=== PATIENT | female | born 1980 | race African-American/Black ===

== ENCOUNTER 2019-05-17 10:23 | Emergency (ER) | payer BC ==
--- NOTE | 2019-05-17 11:07 | RAD REPORT ---
EXAM DESCRIPTION: RAD - Chest Single View - 05/17/2019 10:59 am CLINICAL HISTORY: Palpitations, right-sided chest pain COMPARISON: None. TECHNIQUE: AP portable chest image was obtained . FINDINGS: Lungs are clear. Heart and vasculature are normal. No measurable pleural effusion and no p neumothorax. No acute bony abnormality seen. No acute aortic finding. Granulomatous hilar calcificati ons are present. IMPRESSION: No acute cardiopulmonary process.
[2019-05-17 11:12] LABS: Basophils % 0.7 % (0-1.3); Hematocrit 39.3 % (36.0-45.0); Lymphocytes % 27.7 % (15.3-44.8); MPV 9.1 fL (7.6-11.3)
[2019-05-17 11:27] LABS: Protime INR 1.05
[2019-05-17 11:29] LABS: ALT/SGPT 18 U/L (12-78); AST/SGOT 16 U/L (15-37); Albumin 3.9 g/dL (3.4-5.0); Alkaline Phosphatase 72 U/L (45-117); BUN Blood Urea Nitrogen 9 mg/dL (7-18); Bicarbonate 29 mmol/L (21-32); Bilirubin Direct 0.1 mg/dL (0-0.2); Bilirubin Total 0.4 mg/dL (0.2-1.0); Glucose Level 209 mg/dL (74-106); Lipase 33 U/L (73-393); Magnesium 1.9 mg/dL (1.8-2.4); NT PRO-BNP 9 pg/mL (<125); Potassium 3.9 mmol/L (3.5-5.1); Sodium Level 139 mmol/L (136-145); Troponin (Emerg Dept Use Only) < 0.02 ng/mL (0.0-0.045)
[2019-05-17 11:32] LABS: Urine Blood 2+ (NEG); Urine Glucose NEGATIVE (NEG); Urine Protein NEGATIVE (NEG); Urine Specific Gravity 1.025 (1.005-1.030); Urine pH 5.5 (5.0-7.0)
--- NOTE | 2019-05-17 11:56 | ER ---
Nurse's Notes [facility] Name: Valorie Cisneros Age: 39 yrs Sex: Female : 1980 Arrival Date: 05/17/2019 Time: 10:27 Bed 7 Private MD: Liban Sosa V Diagnosis: Other chest pain;Type 1 diabetes mellitus;Essential (primary) hypertension Presentation: 05/17 10:35 Presenting complaint: Patient states: intermittent palpitations and R sided chest pain ss that began 1 month ago. L low back/ flank pain x 2 weeks. Transition of care: patient was not received from another setting of care. Onset of symptoms is unknown. Risk Assessment: Do you want to hurt yourself or someone else? Patient reports no desire to harm self or others. Initial Sepsis Screen: Does the patient meet any 2 criteria? No. Patient's initial sepsis screen is negative. Does the patient have a suspected source of infection? No. Patient's initial sepsis screen is negative. Care prior to arrival: None. 10:35 Method Of Arrival: Ambulatory ss 10:35 Acuity: COLEMAN 3 ss Historical: - Allergies: 10:37 No Known Allergies; ss - Home Meds: 10:37 toujeo [Active]; rosuvastatin 5 mg oral tab 1 tab once daily [Active]; Novolog Sub-Q ss [Active]; - PMHx: 10:37 Diabetes - IDDM; ss - PSHx: 10:37 ; ss - Immunization history:: Adult Immunizations up to date. - Social history:: Smoking status: Patient/guardian denies using tobacco. - Ebola Screening: : Patient denies exposure to infectious person Patient denies travel to an Ebola-affected area in the 21 days before illness onset. - Family history:: not pertinent. Screenin:38 Abuse screen: Denies threats or abuse. Denies injuries from another. Nutritional ph screening: No deficits noted. Tuberculosis screening: No symptoms or risk factors identified. Fall Risk None identified. Vital Signs: 10:37 Resp 16; Temp 97.3(TE); Weight 63.5 kg; Height 5 ft. 6 in. (167.64 cm); Pain 0/10; ss 10:38 BP 142 / 111; ph 10:39 BP 142 / 111; Pulse 92; Pulse Ox 100% on R/A; ss 12:13 BP 143 / 105; Pulse 90; Resp 12; Pulse Ox 98% ; ms 12:48 Temp 97.6; ph 10:37 Body Mass Index 22.60 (63.50 kg, 167.64 cm) ED Course: 10:27 Patient arrived in ED. am2 10:28 Liban Sosa MD is Private Physician. am2 10:29 Domingo Peck MD is Attending Physician. elliott 10:36 Triage completed. ss 10:37 Arm band placed on right wrist. ss 10:39 Patient has correct armband on for positive identification. Placed in gown. Bed in low ph position. Call light in reach. Side rails up X 1. Pulse ox on. NIBP on. rn mental health on. Door closed. Noise minimized. 10:46 Meredith Morris, RN is Primary Nurse. sv 10:52 Urine collected: clean catch specimen, clear, Amount Voided: 50mL EKG done, by ED ms staff, reviewed by Domingo Peck MD. 10:57 XRAY Chest (1 view) In Process Unspecified. EDMS 11:55 Liban Sosa MD is Referral Physician. elliott 11:55 Omer Mustafa MD is Referral Physician. elliott Administered Medications: 12:47 Drug: Norvasc 10 mg Route: PO; ph 12:47 Follow up: Response: No adverse reaction; Medication administered at discharge. ph 12:47 Drug: Aspirin 162 mg Route: PO; ph 12:48 Follow up: Response: No adverse reaction; Medication administered at discharge. ph Outcome: 11:56 Discharge ordered by . elliott 12:49 Patient left the ED. ph Signatures: Dispatcher [employer] EDMeredith Werner, Domingo Carrillo RN, MD MD cha Solis, Maria ms Smirch, Shelby, RN RN Dorothy Monk RN RN Allison Glass am2 Corrections: (The following items were deleted from the chart) 10:40 10:39 BP 142 / 11; Pulse 92bpm; Pulse Ox 100% RA; ss ss
--- NOTE | 2019-05-17 11:57 | EDPHYS ---
Physician Documentation [facility] Name: Valorie Cisneros Age: 39 yrs Sex: Female : 1980 Arrival Date: 05/17/2019 Time: 10:27 Bed 7 Private MD: Liban Sosa V ED Physician Domingo Peck HPI: 05/17 10:45 This 39 yrs old Black Female presents to ER via Ambulatory with complaints of Chest elliott Pain, Congestion, left side pain. 10:45 The patient or guardian reports chest pain that is located primarily in the anterior elliott chest wall, right. The pain does not radiate. Associated signs and symptoms: The patient has no apparent associated signs or symptoms. The chest pain is described as stabbing. Modifying factors: The symptoms are alleviated by nothing. the symptoms are aggravated by nothing. Severity of pain: At its worst the pain was mild in the emergency department the pain is unchanged. The patient has not experienced similar symptoms in the past. Historical: - Allergies: 10:37 No Known Allergies; ss - Home Meds: 10:37 toujeo [Active]; rosuvastatin 5 mg oral tab 1 tab once daily [Active]; Novolog Sub-Q ss [Active]; - PMHx: 10:37 Diabetes - IDDM; ss - PSHx: 10:37 ; ss - Immunization history:: Adult Immunizations up to date. - Social history:: Smoking status: Patient/guardian denies using tobacco. - Ebola Screening: : Patient denies exposure to infectious person Patient denies travel to an Ebola-affected area in the 21 days before illness onset. - Family history:: not pertinent. ROS: 10:45 Constitutional: Negative for fever, chills, and weight loss, Eyes: Negative for injury, elliott pain, redness, and discharge, ENT: Negative for injury, pain, and discharge, Neck: Negative for injury, pain, and swelling, Respiratory: Negative for shortness of breath, cough, wheezing, and pleuritic chest pain, Abdomen/GI: Negative for abdominal pain, nausea, vomiting, diarrhea, and constipation, Back: Negative for injury and pain, : Negative for injury, bleeding, discharge, and swelling, MS/Extremity: Negative for injury and deformity, Skin: Negative for injury, rash, and discoloration, Neuro: Negative for headache, weakness, numbness, tingling, and seizure, Psych: Negative for depression, anxiety, suicide ideation, homicidal ideation, and hallucinations, Allergy/Immunology: Negative for hives, rash, and allergies, Endocrine: Negative for neck swelling, polydipsia, polyuria, polyphagia, and marked weight changes, Hematologic/Lymphatic: Negative for swollen nodes, abnormal bleeding, and unusual bruising. 10:45 Cardiovascular: Positive for chest pain, of the anterior aspect of right upper chest and right breast. Exam: 10:45 Constitutional: This is a well developed, well nourished patient who is awake, alert, elliott and in no acute distress. Head/Face: Normocephalic, atraumatic. Eyes: Pupils equal round and reactive to light, extra-ocular motions intact. Lids and lashes normal. Conjunctiva and sclera are non-icteric and not injected. Cornea within normal limits. Periorbital areas with no swelling, redness, or edema. ENT: Nares patent. No nasal discharge, no septal abnormalities noted. Tympanic membranes are normal and external auditory canals are clear. Oropharynx with no redness, swelling, or masses, exudates, or evidence of obstruction, uvula midline. Mucous membranes moist. Neck: Trachea midline, no thyromegaly or masses palpated, and no cervical lymphadenopathy. Supple, full range of motion without nuchal rigidity, or vertebral point tenderness. No Meningismus. Chest/axilla: Normal chest wall appearance and motion. Nontender with no deformity. No lesions are appreciated. Cardiovascular: Regular rate and rhythm with a normal S1 and S2. No gallops, murmurs, or rubs. Normal PMI, no JVD. No pulse deficits. Respiratory: Lungs have equal breath sounds bilaterally, clear to auscultation and percussion. No rales, rhonchi or wheezes noted. No increased work of breathing, no retractions or nasal flaring. Abdomen/GI: Soft, non-tender, with normal bowel sounds. No distension or tympany. No guarding or rebound. No evidence of tenderness throughout. Back: No spinal tenderness. No costovertebral tenderness. Full range of motion. Skin: Warm, dry with normal turgor. Normal color with no rashes, no lesions, and no evidence of cellulitis. MS/ Extremity: Pulses equal, no cyanosis. Neurovascular intact. Full, normal range of motion. Neuro: Awake and alert, GCS 15, oriented to person, place, time, and situation. Cranial nerves II-XII grossly intact. Motor strength 5/5 in all extremities. Sensory grossly intact. Cerebellar exam normal. Normal gait. Psych: Awake, alert, with orientation to person, place and time. Behavior, mood, and affect are within normal limits. 10:48 Musculoskeletal/extremity: DVT Exam: No signs of deep vein thrombosis. no pain, no elliott swelling, no tenderness, negative Homans' sign noted on exam, no appreciated bluish discoloration, no erythema, no increased warmth. Vital Signs: 10:37 Resp 16; Temp 97.3(TE); Weight 63.5 kg; Height 5 ft. 6 in. (167.64 cm); Pain 0/10; ss 10:38 BP 142 / 111; ph 10:39 BP 142 / 111; Pulse 92; Pulse Ox 100% on R/A; ss 12:13 BP 143 / 105; Pulse 90; Resp 12; Pulse Ox 98% ; ms 12:48 Temp 97.6; ph 10:37 Body Mass Index 22.60 (63.50 kg, 167.64 cm) MDM: 10:29 Patient medically screened. [facility] 10:47 Data reviewed: vital signs, nurses notes, lab test result(s), EKG, radiologic studies, [facility] plain films. 05/17 10:44 Order name: Basic Metabolic Panel [facility] 05/17 10:44 Order name: CBC with Diff; Complete Time: 11:54 [facility] 05/17 10:44 Order name: LFT's; Complete Time: 11:54 [facility] 05/17 10:44 Order name: Magnesium; Complete Time: 11:54 [facility] 05/17 10:44 Order name: NT PRO-BNP [facility] 05/17 10:44 Order name: PT-INR; Complete Time: 11:54 [facility] 05/17 10:44 Order name: Troponin (emerg Dept Use Only); Complete Time: 11:54 [facility] 05/17 10:44 Order name: Lipase; Complete Time: 11:54 [facility] 05/17 10:44 Order name: Urine Culture [facility] 05/17 10:44 Order name: D-Dimer; Complete Time: 11:54 [facility] 05/17 10:45 Order name: Basic Metabolic Panel; Complete Time: 11:54 [facility] 05/17 10:45 Order name: NT PRO-BNP; Complete Time: 11:54 [facility] 05/17 10:48 Order name: Urine Dipstick--Ancillary (enter results); Complete Time: 11: 05/17 10:48 Order name: Urine --Ancillary (enter results); Complete Time: 11:54 05/17 10:44 Order name: XRAY Chest (1 view); Complete Time: 11:54 [facility] 05/17 10:44 Order name: EKG; Complete Time: 10:46 [facility] 05/17 10:44 Order name: Cardiac monitoring; Complete Time: 11: [facility] 05/17 10:44 Order name: EKG - Nurse/Tech; Complete Time: [facility] 05/17 10:44 Order name: IV Saline Lock; Complete Time: : [facility] 05/17 10:44 Order name: Labs collected and sent; Complete Time: : [facility] 05/17 10:44 Order name: O2 Per Protocol; Complete Time: 10:53 [facility] 05/17 10:44 Order name: O2 Sat Monitoring; Complete Time: : [facility] 05/17 10:44 Order name: Urine Dipstick-Ancillary (obtain specimen); Complete Time: : [facility] 05/17 10:44 Order name: Urine Test (obtain specimen); Complete Time: : [facility] 05/17 11:55 Order name: Vital Signs; Complete Time: 12:16 elliott Administered Medications: 12:47 Drug: Norvasc 10 mg Route: PO; ph 12:47 Follow up: Response: No adverse reaction; Medication administered at discharge. ph 12:47 Drug: Aspirin 162 mg Route: PO; ph 12:48 Follow up: Response: No adverse reaction; Medication administered at discharge. ph Disposition: 05/17/19 11:56 Discharged to Home. Impression: Other chest pain, Type 1 diabetes mellitus, Essential (primary) hypertension. - Condition is Stable. - Discharge Instructions: Nonspecific Chest Pain, Hypertension, Nonspecific Chest Pain, [id number], Hypertension, [id number], Aspirin and Your Heart. - Prescriptions for Norvasc 5 mg Oral Tablet - take 1 tablet by ORAL route once daily; 20 tablet. - Medication Reconciliation Form, Thank You Letter, Antibiotic Education, Prescription Opioid Use, Work release form form. - Follow up: Liban Sosa; When: 2 - 3 days; Reason: Recheck today's complaints, Continuance of care, Re-evaluation by your physician. Follow up: Omer Mustafa; When: 2 - 3 days; Reason: Recheck today's complaints, Continuance of care, Re-evaluation by your physician. - Problem is new. - Symptoms have improved. Signatures: Dispatcher [employer] EDMS Domingo Peck MD MD cha Smirch, Shelby, RN RN Dorothy Monk RN RN ph Corrections: (The following items were deleted from the chart) 12:49 11:56 05/17/2019 11:56 Discharged to Home. Impression: Other chest pain; Type 1 ph diabetes mellitus; Essential (primary) hypertension. Condition is Stable. Discharge Instructions: Nonspecific Chest Pain, Hypertension, Nonspecific Chest Pain, [id number], Hypertension, [id number], Aspirin and Your Heart. Prescriptions for Norvasc 5 mg Oral Tablet - take 1 tablet by ORAL route once daily; 20 tablet. and Forms are Medication Reconciliation Form, Thank You Letter, Antibiotic Education, Prescription Opioid Use. Follow up: Liban Sosa; When: 2 - 3 days; Reason: Recheck today's complaints, Continuance of care, Re-evaluation by your physician. Follow up: Omer Mustafa; When: 2 - 3 days; Reason: Recheck today's complaints, Continuance of care, Re-evaluation by your physician. Problem is new. Symptoms have improved. elliott
[2019-05-17] MEDS ORDERED: ASPIRIN 81 MG CHEWABLE TABLET ONE (12:26)
[2019-05-17] MEDS ORDERED: AMLODIPINE 5 MG TAB ONE (12:26)
[2019-05-17 13:03] VITALS: BP 143/105; O2SAT 98
[2019-05-17 13:04] VITALS: TEMP 97.6
--- NOTE | 2019-05-18 06:14 | EKG ---
Test Date: 2019-05-17 Test Time: 10:34:34 Short Story Writer: MEASUREMENT RESULTS: Intervals: Rate: 92 W[place]: 166 QRSD: 80 QT: 360 QTc: 445 [place]: P: 51 W[place]: 166 QRS: 43 T: 56 INTERPRETIVE STATEMENTS: Normal sinus rhythm Septal infarct, age undetermined Abnormal ECG No previous ECG available for comparison Electronically Signed On 05-18-19 06:13:45 CDT by Bassam Sanchez
== END 2019-05-17 12:49 | disposition home or self-care (01) ==
LOC: ER 10:23
DX: I10 Essential (primary) hypertension (principal); E10.9 Type 1 diabetes mellitus without complications; Z79.4 Long term (current) use of insulin
CPT/HCPCS: 36415; 71045; 80048; 80076; 81003; 81025; 83690; 83735; 83880; 84484; 85025; 85379; 85610; 87086; 87088; 93005; 99284